=== PATIENT | female | born 1955 | race African-American/Black ===

== ENCOUNTER 2017-01-26 14:05 | Emergency (ER) | payer OTHER, MEDICARE ==
[2017-01-26 15:11] LABS: HEMOGLOBIN 14.1 gm/dl (12.3-15.3); RED BLOOD COUNT 5.91 M/UL (4.00-5.10); WHITE BLOOD COUNT 16.5 K/UL (4.5-11.0)
[2017-01-26 15:21] LABS: BUN/CREATININE RATIO 16 (0-10)
== END 2017-01-26 21:48 | disposition home or self-care (01) ==
LOC: ER1 14:05
PROVIDERS: Emergency Medicine
DX: J40 Bronchitis, not specified as acute or chronic (principal); R91.1 Solitary pulmonary nodule; E83.52 Hypercalcemia; I25.2 Old myocardial infarction; E11.9 Type 2 diabetes mellitus without complications; I10 Essential (primary) hypertension; J44.9 Chronic obstructive pulmonary disease, unspecified; E03.9 Hypothyroidism, unspecified; F17.200 Nicotine dependence, unspecified, uncomplicated; Z88.8 Allergy status to other drugs, medicaments and biological substances; Z79.899 Other long term (current) drug therapy; Z90.49 Acquired absence of other specified parts of digestive tract
CPT/HCPCS: 36415; 71020; 71260; 80053; 82550; 82553; 83874; 84484; 85025; 93005; 94664; 96374; 99285; J2930; J7050; Q9963